=== PATIENT | male | born 1950 | race Caucasian/White ===

== ENCOUNTER → 2020-10-17 08:54 | Outpatient (BNVA) | payer MEDICARE, SELFPAY | PROVIDERS: PCP Internal Medicine Pulmonary Disease; Visit Provider Orthopaedic Surgery | DX: M75.101 Unspecified rotator cuff tear or rupture of right shoulder, not specified as traumatic (principal) | CPT/HCPCS: 99202 ==

== ENCOUNTER 2020-11-19 07:28 | Day surgery (SDC) | payer MEDICARE, SELFPAY ==
[2020-11-05 19:36] VITALS: BMI 35.9
--- NOTE | 2020-11-18 10:48 | HO.ANESPROP2 ---
Documented by User: Sheri Walsh 11/18/20 10:48 HPI - Anesthesia Eval Consult details Narrative: 70yo M for Arthroscopic Rotator Cuff Repair COUNT INCLUDES THE [facility] Past Medical History Medical History GERD (gastroesophageal reflux disease) High cholesterol Hypertension Surgical History Surgical History History of right knee surgery History of total left knee replacement History of total right knee replacement (TKR) (~2009) Social History Social History Smoking Status: Former smoker Smoked in Last 30 Days: No Use of substances other than those prescribed or required for medical reasons: No Advance Directives: No Advance Directives Information Provided: No Advance Directives on File: No Recently lost weight without trying: No Current occupational status: employed 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, 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 Meds Allergies Allergy/AdvReac Type Severity Reaction Status Date / Time No Known Allergies Allergy Verified 10/17/20 09:46 Home Medications Medication Instructions Recorded Confirmed Type amlodipine 2.5 mg tablet 2.5 mg PO DAILY 10/17/20 10/17/20 History hydrochlorothiazide 25 mg tablet 25 mg PO DAILY 10/17/20 10/17/20 History omeprazole 20 mg capsule,delayed 20 mg PO DAILY 10/17/20 10/17/20 History release simvastatin 20 mg tablet 20 mg PO BEDTIME 10/17/20 10/17/20 History Exam Exam Date and Time: November 18, 2020 1048 Height,Weight and Vital Signs: Height 6 ft Weight 120.202 kg Assessment and Plan Assessment Anesthesia Assessment: Chart Reviewed Documented by User: Jean Paul Hsu MD 11/19/20 09:21 COUNT INCLUDES THE [facility] Past Medical History Medical History GERD (gastroesophageal reflux disease) High cholesterol Hypertension Surgical History Surgical History History of right knee surgery History of total left knee replacement History of total right knee replacement (TKR) (~2009) Social History Social History Smoking Status: Former smoker Smoked in Last 30 Days: No Use of substances other than those prescribed or required for medical reasons: No Advance Directives: No Advance Directives Information Provided: No Advance Directives on File: No Recently lost weight without trying: No Current occupational status: employed 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, 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 Meds Allergies Allergy/AdvReac Type Severity Reaction Status Date / Time No Known Allergies Allergy Verified 10/17/20 09:46 Home Medications Medication Instructions Recorded Confirmed Type amlodipine 2.5 mg tablet 2.5 mg PO DAILY 10/17/20 10/17/20 History hydrochlorothiazide 25 mg tablet 25 mg PO DAILY 10/17/20 10/17/20 History omeprazole 20 mg capsule,delayed 20 mg PO DAILY 10/17/20 10/17/20 History release simvastatin 20 mg tablet 20 mg PO BEDTIME 10/17/20 10/17/20 History Exam Airway Mallampati Class: II TM Dist: >3cm Neck ROM: Full Loose/Missing/Broken Teeth: No Heart: RRR Lungs: NL Other: AO Assessment and Plan Assessment Anesthesia Assessment: Anesthesia Plan Discussed and Chart Reviewed Final Anesthetic Review NPO: Yes ASA Class: II Final Preanesthetic Review: No Changes in Pt Med Stat, Meds/Allgs Chart Reviewed, Consent Obtained/Reviewed and Anes Risks/Benef Reviewed Patient Risk: Low Procedure Risk: Intermediate Anesthetic Plan Anesthetic Plan: GA and Regional Block Disposition: Standard PACU
[2020-11-19] VITALS (17 sets, daily range): BP systolic 112–153; BP diastolic 59–99; PULSE 61–86; RESP 18; TEMP 36.6; O2SAT 94–97
[2020-11-19] MEDS: Lactated Ringers 1,000 ML 100 ML IVCONT (08:08)
--- NOTE | 2020-11-19 09:10 | MHC.SHP ---
Pre-Procedural Eval Section A The patient is an INPATIENT: No Changes since office visit: Yes Patient answered all questions; No Cold of Flu in the past 2 weeks, No New Medical Problems and No Changes in Medication The History & Physical has been completed within 30 days and I have reviewed it.: Yes Section B Chief Complaint: rotator cuff repair Allergies: Allergies Allergy/AdvReac Type Severity Reaction Status Date / Time No Known Allergies Allergy Verified 10/17/20 09:46 Plan I have reviewed the history and physical and performed a pertinent physical examination on my patient. No changes have occurred unless specified.
[2020-11-19] MEDS: ceFAZolin Sodium/Dextrose,Iso 2 GM/50 ML PIGGYBACK IV (10:01)
--- NOTE | 2020-11-19 11:59 | PM.OP ---
Brief Operative Note Date of Service: 11/19/20 Pre-op diagnosis: right shoulder rotator cuff tear Post-op diagnosis: other (rtc tear, labral tear, sub acromial impingement, ACJ arthritis) Procedure: rtc repair, posterior and anterior labral debridement, SAD and distal clavicle excision Implants: thompson and nephew helacoil 5.0 Surgeon: Dante Anthony MD Anesthesia: GETA and regional Estimated blood loss (mL): 5 Tourniquet time (min): 0 IV fluids (mL): 1,200 Urine output (mL): 0 Pathology: none sent Condition: stable Disposition: PACU
[2020-11-19] MEDS: ondansetron HCL 4 MG/2 ML VIAL IVPUSH (12:18)
--- NOTE | 2020-11-19 14:58 | HO.POSTANES ---
Post Anesthesia Evaluation Post Anesthesia Evaluation Vital Signs: Vital Signs Temp Pulse Resp BP Pulse Ox 11/19/20 14:42 79 18 113/73 95 11/19/20 14:23 76 18 118/63 96 11/19/20 14:08 77 18 127/69 96 11/19/20 13:53 76 18 125/65 94 11/19/20 13:38 72 18 116/59 L 94 11/19/20 13:23 74 18 112/65 94 11/19/20 13:08 72 18 117/68 96 11/19/20 12:53 72 18 128/65 94 11/19/20 12:38 61 18 126/65 96 11/19/20 12:23 66 18 127/75 94 11/19/20 12:18 64 18 145/94 H 94 11/19/20 12:13 70 18 138/84 94 11/19/20 12:08 98 F 70 18 140/80 H 94 11/19/20 07:55 98 F 81 18 153/99 H 97 Anesthesia: General Endotracheal-GETA Mental Status: Awake Pain Control: Satisfactory Nausea/Vomiting: Severe (Treated in PACU. Recommend triple therapy or TIVA in future) Hydration: Adequate Anesthesia-Related Issues: No Anes. Related Issues
--- NOTE | 2020-11-21 19:56 | OP_ITS ---
SURGEON: Dante Anthony MD INDICATIONS: This is a 70-year-old gentleman with a rotator cuff tear of the right shoulder, consented to undergo repair. PREOPERATIVE DIAGNOSIS: Right shoulder rotator cuff tear. POSTOPERATIVE DIAGNOSIS: PROCEDURE PERFORMED: Arthroscopic rotator cuff tear with posterior and anterior labral debridement, subacromial decompression and distal clavicle excision. ESTIMATED BLOOD LOSS: 5 mL. COMPLICATIONS: None known. ANESTHESIA: General and regional. ASSISTANTS: None. SPECIMENS: POSTOPERATIVE DIAGNOSES: 1. Right shoulder rotator cuff tear. 2. Right shoulder labral tear. 3. Right shoulder subacromial impingement. 4. Right shoulder AC joint arthritis. IMPLANTS: Ruff and Nephew Healicoil 5.0 x2. FLUIDS: 1200. PROCEDURE IN DETAIL: The patient was brought to the operating room, placed in the beach chair position. All bony prominences were well padded and he was prepped and draped in standard sterile fashion. A time-out was called to identify proper site, proper procedure, proper surgeon. IV antibiotics per weight was administered. I began by making a posterolateral stab incision and placing my blunt trocar atraumatically into the glenohumeral joint. I then established an outside-in anterosuperior portal. Immediately evident was a fraying circumferentially of the labrum without a formal SLAP tear. I debrided the anterior and posterior around the labrum and examined the inferior gutter which was clean. The biceps anchor was intact and there was some grade 1 fraying of the glenohumeral joint, but overall mild. I looked up toward the cuff and he had a full-thickness retracted tear of his supraspinatus and infraspinatus. The subscapularis was intact. I then ascended into the subacromial space and established a direct lateral portal. I debrided all the loose tissue until I was able to identify the tear. There was an approximately 10% of the supraspinatus anterior portion was intact, . I placed 4 SutureTape through the retracted portion of supraspinatus and was able to pull this to the edge of the bare area. The bare area was debrided down to bleeding bone and I released some of the I was able to obtain slightly more lateral excursion. I then placed 2 Healicoil anchors laterally and pulled the cuff toward the debrided bare area. I had some tendon to bone interface without undue tension on the cuff, but not enough for a second row. Once this was done, I performed a 5 mm subacromial decompression and then a 5 mm distal clavicle excision. Hemostasis was maintained with cautery and there were no known complications. All instrumentation was removed. Portals were closed with nylon. The patient was placed in sterile dressing and an abduction sling, awakened from anesthesia, and brought to recovery room in stable condition. There were no known complications. MD AMY Persaud/SARAHI / [id number]
== END 2020-11-19 16:25 | disposition home or self-care (01) ==
PROVIDERS: PCP Internal Medicine Pulmonary Disease; Visit Provider Orthopaedic Surgery
PROC: (CPT 29827; principal; 2020-11-19 09:00)
DX: S46.011A Strain of muscle(s) and tendon(s) of the rotator cuff of right shoulder, initial encounter (principal); S43.431A Superior glenoid labrum lesion of right shoulder, initial encounter; M19.011 Primary osteoarthritis, right shoulder; W01.0XXA Fall on same level from slipping, tripping and stumbling without subsequent striking against object, initial encounter; Y93.01 Activity, walking, marching and hiking; Y92.89 Other specified places as the place of occurrence of the external cause; Y99.8 Other external cause status; I10 Essential (primary) hypertension; Z79.899 Other long term (current) drug therapy; Z96.651 Presence of right artificial knee joint; Z87.891 Personal history of nicotine dependence
CPT/HCPCS: 29827; 29826; 29824; J0171; J0690; J2250; J2405; J3010

== ENCOUNTER → 2020-12-01 12:52 | Outpatient (BNVA) | payer MEDICARE, SELFPAY | PROVIDERS: PCP Internal Medicine Pulmonary Disease; Visit Provider Physician Assistant | DX: Z98.890 Other specified postprocedural states (principal) | CPT/HCPCS: 99212 ==

== ENCOUNTER → 2021-01-01 12:29 | Outpatient (BNVA) | payer MEDICARE, SELFPAY | PROVIDERS: PCP Internal Medicine Pulmonary Disease; Visit Provider Orthopaedic Surgery | DX: Z98.890 Other specified postprocedural states (principal) | CPT/HCPCS: 99212 ==

== ENCOUNTER → 2021-02-12 10:08 | Outpatient (BNVA) | payer MEDICARE, SELFPAY | PROVIDERS: Visit Provider Orthopaedic Surgery | DX: Z98.890 Other specified postprocedural states (principal) | CPT/HCPCS: 99212 ==